=== PATIENT | male | born 1980 | race Caucasian/White ===

== ENCOUNTER 2016-06-10 03:15 | Observation (INO) | payer BC ==
[~2016-06-10] VITALS: Ht 182.9 cm; Wt 97.7 kg
[2016-06-10] VITALS (9 sets, daily range): BP systolic 112–138; BP diastolic 53–71; PULSE 54–87; TEMP 36.5–36.7; O2SAT 92–99; Ht 182.9 cm; Wt 97.7 kg
[2016-06-10] MEDS ORDERED: ONDANSETRON INJ 2 MG/ML 2 ML VIAL IV STA ×2 (03:27→04:41)
[2016-06-10] MEDS ORDERED: MoRPHine SULFATE 10 MG/ML CARP/VIAL IV STA (03:27)
[2016-06-10] MEDS ORDERED: SODIUM CHLORIDE 0.9% 1000ML 1,000 ML IV ONE ×2 (03:30→04:45)
[2016-06-10 03:47] LABS: BASO % 0.2 %; BASO ABS # 0.02 K/uL (0-0.2); COMPLETE YES; EOS % 2.7 %; HEMATOCRIT 42.8 % (42-52); IG% 0.3 %; LYMPH % 22.6 %; LYMPH ABS # 2.46 K/uL (1.2-3.4); MEAN CELL VOLUME 90.1 fL (80-100); MEAN CORPUSCULAR HEMOGLOBIN 31.6 pg (25-34); MEAN PLATELET VOLUME 9.4 fL (7.4-10.4); MONO % 7.4 %; NEUT % 66.8 %; PLATELET COUNT 146 K/uL (130-400); RED BLOOD COUNT 4.75 M/uL (4.7-6.1); WHITE BLOOD COUNT 10.87 K/uL (4.8-10.8)
[2016-06-10 04:08] LABS: BUN/CREATININE RATIO 21.6 (10-20); CALCIUM 8.7 mg/dl (8.5-10.1); CREATININE 0.94 mg/dl (0.60-1.40); POTASSIUM 3.3 mmol/L (3.5-5.1)
[2016-06-10 04:11] LABS: ALB/GLOB RATIO 1.3 (0.9-2)
[2016-06-10] MEDS ORDERED: GLUC10007 PO (04:35)
[2016-06-10] MEDS ORDERED: HYDROmorphone INJ 1 MG/ML SYR IV STA (04:41)
[2016-06-10] MEDS ORDERED: CEFOXITIN SOD 2 GM VIAL IV STA (04:57)
[2016-06-10 05:06] LABS: URINE APPEARANCE CLEAR (CLEAR); URINE BILIRUBIN NEG (NEG); URINE COLOR YELLOW; URINE NITRITE NEG (NEG); UROBILINOGEN NEG (NEG); ZZUR CULT IF INDIC CLEAN CATCH NO
[2016-06-10 05:08] LABS: MANUAL MICROSCOPIC REQUIRED? NO; REVIEW REQ? NO
--- NOTE | 2016-06-10 05:55 | EMERGENCY ROOM VISIT NOTE ---
History First contact with patient: 03:20 Chief Complaint: ABDOMINAL PAIN Stated Complaint: RT LOWER ABD PAIN Nursing Triage Summary: R lower quad abdominal pain started at 0100 after eating a dinner roll from [place] [employer]. +N. denies V/D. denies history of similar symptoms. hx kidney stones. History of Present Illness The patient is a 35 year old male who presents to the Emergency Room with complaints of right lower quadrant abdominal pain that began about 2 hours ago. The patient is nauseated but has not vomited. He does not have a history of abdominal surgery, but states that he has had kidney stones in the past. He last had something to eat at midnight, eating a dinner roll from [place] [employer]. The patient has not had fever or chills. No chest pain or shortness of breath. He does not have chronic medical disease and considers himself otherwise usually healthy. He rates his pain a constant 9/10 without radiation. No difficulty using the bathroom. Review of Systems More than 10 systems were reviewed and otherwise negative with the exception of history of present illness. Past Medical/Surgical History Surgical Problems: (1) S/P laparoscopic appendectomy No chronic medical disease Family History Cancer No pertinent family history Social History Smoking Status: Former Smoker Alcohol Use: none Marital Status: Housing Status: lives with family Current/Historical Medications Scheduled Glucosamine Sulfate (Glucosamine), 1,000 MG PO BID Scheduled PRN Oxycodone/Acetaminophen 5MG/325MG (Percocet 5MG/325MG), 1 TABLET PO Q4H PRN for Pain Allergies Coded Allergies: No Known Allergies (Verified , 06/10/16) Physical Exam Vital Signs Date Time Temp Pulse Resp B/P Pulse Ox O2 Delivery O2 Flow Rate FiO2 06/10/16 08:20 36.7 54 16 120/64 95 Room Air 06/10/16 08:11 64 16 118/65 96 06/10/16 07:27 56 18 126/64 97 Room Air 06/10/16 05:42 74 20 116/68 96 Room Air 06/10/16 04:32 76 20 127/76 97 Room Air 06/10/16 03:22 37.0 90 20 149/81 97 Room Air Physical Exam VITALS: Vitals are noted on the nurse's note and reviewed by myself. Vital signs stable. GENERAL: Well-developed, well-nourished, white male who appears in moderate to severe discomfort secondary to his stated complaint., Patient is cooperative with the examination. HEAD: Normocephalic atraumatic. HEART: Regular rate and rhythm without murmurs gallops or rubs. LUNGS: Clear to auscultation bilaterally without wheezes, rales or rhonchi. No retractions or accessory muscle use. ABDOMEN: Positive normal bowel sounds x 4. Soft with exquisite right lower quadrant tenderness on palpation. The patient does guard in this area. No CVA tenderness. MUSCULOSKELETAL: No muscle atrophy, erythema, or edema noted. Full range of motion without joint tenderness in all extremities. Medical Decision & Procedures ER Provider Diagnostic Interpretation: Preliminary Findings Only See Final Report For Complete Findings CT ABDOMEN & PELVIS: Appendix is dilated up to 1.2 cm and there are mild adjacent inflammatory changes. Findings are compatible with acute appendicitis in the appropriate clinical setting. 1 mm nonobstructing stone in left kidney. No hydronephrosis. Laboratory Results 06/10/16 03:35 Red Blood Count 4.75, Mean Corpuscular Volume 90.1, Mean Corpuscular Hemoglobin 31.6, Mean Corpuscular Hemoglobin Concent 35.0, Mean Platelet Volume 9.4, Neutrophils (%) (Auto) 66.8, Lymphocytes (%) (Auto) 22.6, Monocytes (%) (Auto) 7.4, Eosinophils (%) (Auto) 2.7, Basophils (%) (Auto) 0.2, Neutrophils # (Auto) 7.27, Lymphocytes # (Auto) 2.46, Monocytes # (Auto) 0.80, Eosinophils # (Auto) 0.29, Basophils # (Auto) 0.02 06/10/16 03:35 Test 06/10/16 03:35 06/10/16 04:30 White Blood Count 10.87 K/uL (4.8-10.8) Red Blood Count 4.75 M/uL (4.7-6.1) Hemoglobin 15.0 g/dL (14.0-18.0) Hematocrit 42.8 % (42-52) Mean Corpuscular Volume 90.1 fL (80-100) Mean Corpuscular Hemoglobin 31.6 pg (25-34) Mean Corpuscular Hemoglobin Concent 35.0 g/dl (32-36) Platelet Count 146 K/uL (130-400) Mean Platelet Volume 9.4 fL (7.4-10.4) Neutrophils (%) (Auto) 66.8 % Lymphocytes (%) (Auto) 22.6 % Monocytes (%) (Auto) 7.4 % Eosinophils (%) (Auto) 2.7 % Basophils (%) (Auto) 0.2 % Neutrophils # (Auto) 7.27 K/uL (1.4-6.5) Lymphocytes # (Auto) 2.46 K/uL (1.2-3.4) Monocytes # (Auto) 0.80 K/uL (0.11-0.59) Eosinophils # (Auto) 0.29 K/uL (0-0.5) Basophils # (Auto) 0.02 K/uL (0-0.2) RDW Standard Deviation 41.9 fL (36.4-46.3) RDW Coefficient of Variation 12.7 % (11.5-14.5) Immature Granulocyte % (Auto) 0.3 % Immature Granulocyte # (Auto) 0.03 K/uL (0.00-0.02) Anion Gap 9.0 mmol/L (3-11) Est Creatinine Clear Calc Drug Dose 130.3 ml/min Estimated GFR () 119.6 Estimated GFR (Non- 103.2 BUN/Creatinine Ratio 21.6 (10-20) Calcium Level 8.7 mg/dl (8.5-10.1) Total Bilirubin 0.5 mg/dl (0.2-1) Aspartate Amino Transf (AST/SGOT) 9 U/L (15-37) Alanine Aminotransferase (ALT/SGPT) 31 U/L (12-78) Alkaline Phosphatase 77 U/L (45-117) Total Protein 7.2 gm/dl (6.4-8.2) Albumin 4.0 gm/dl (3.4-5.0) Globulin 3.2 gm/dl (2.5-4.0) Albumin/Globulin Ratio 1.3 (0.9-2) Lipase 150 U/L (73-393) Urine Color YELLOW Urine Appearance CLEAR (CLEAR) Urine pH 5.0 (4.5-7.5) Urine Specific [place] 1.010 (1.000-1.030) Urine Protein NEG (NEG) Urine Glucose (UA) NEG (NEG) Urine Ketones NEG (NEG) Urine Occult Blood NEG (NEG) Urine Nitrite NEG (NEG) Urine Bilirubin NEG (NEG) Urine Urobilinogen NEG (NEG) Urine Leukocyte Esterase NEG (NEG) Medications Administered Medications (Trade) Dose Ordered Sig/Munira Route Start Time Stop Time Status Last Admin Dose Admin Sodium Chloride (Nss 1000ml) 1,000 ml @ 999 mls/hr Q1H1M ONCE IV 06/10/16 03:30 06/10/16 04:30 DC 06/10/16 03:33 999 MLS/HR Morphine Sulfate (MoRPHine SULFATE INJ) 8 mg NOW STAT IV 06/10/16 03:27 06/10/16 03:28 DC 06/10/16 03:33 8 MG Ondansetron HCl (Zofran Inj) 4 mg NOW STAT IV 06/10/16 03:27 06/10/16 03:28 DC 06/10/16 03:32 4 MG Hydromorphone HCl (Dilaudid Inj) 1 mg NOW STAT IV 06/10/16 04:41 06/10/16 04:42 DC 06/10/16 05:07 1 MG Ondansetron HCl 4 mg 4 mg NOW STAT IV 06/10/16 04:41 06/10/16 04:42 DC 06/10/16 05:06 4 MG Sodium Chloride (Nss 1000ml) 1,000 ml @ 999 mls/hr Q1H1M ONCE IV 06/10/16 04:45 06/10/16 05:45 DC 06/10/16 05:03 999 MLS/HR Cefoxitin Sodium (Mefoxin IV) 2,000 mg NOW STAT IV 06/10/16 04:57 06/10/16 04:58 DC 06/10/16 05:04 2,000 MG Fentanyl Citrate (Fentanyl Inj) 25 mcg Q5M PRN IV 06/10/16 09:00 06/10/16 14:00 DC 06/10/16 11:26 25 MCG Ondansetron HCl (Zofran Inj) 4 mg ONE PRN IV 06/10/16 09:00 06/10/16 11:10 DC 06/10/16 11:10 4 MG Bupivacaine HCl (Marcaine 0.5% MPF Inj) 14 ml ONE ONCE INJ 06/10/16 10:15 06/10/16 10:52 DC 06/10/16 10:15 14 ML Miscellaneous (Hep 5000 U/ Ancef 1 Gm In 1000 ml NS) 350 ml ONE ONCE IRRIG 06/10/16 10:18 06/10/16 10:57 DC 06/10/16 10:18 350 ML ED Course Physical exam and history were performed. Nursing notes and EMR were reviewed. Patient appears to have exquisite right lower quadrant tenderness on palpation. The patient is quite uncomfortable but cooperative. IV access was established and labs were obtained. The patient was hydrated with normal saline and provided IV morphine and Zofran for comfort. CT scan was performed. The patient's blood work is as above and was reviewed. He does not have significantly elevated white blood cell count, anemia, bandemia, or gross electrolyte imbalance. Lipase and transaminases are nondiagnostic. The patient CT scan is as above and is consistent with acute appendicitis. Clinically this does correlate with the patient's discomfort and physical exam findings. He continued to have pain despite the IV morphine, and I did change him to IV Dilaudid. The case was discussed with the on-call surgeon, Dr. Iyer, who agreed to evaluate the patient here in the emergency department. We did elect to provide the patient with 2 g IV Mefoxin. The patient had preoperative chest x-ray and EKG performed. The patient remained in stable condition in the emergency department until he was evaluated by Dr. Iyer. Please see Dr. Iyer's dictation for further patient course, plan, and disposition. The chart was completed utilizing [employer] Speech Voice Recognition Software. Grammatical errors, random word insertions, pronoun errors, and incomplete sentences are an occasional consequence of this system due to software limitations, ambient noise, and hardware issues. Any formal questions or concerns about the content, text, or information contained within the body of this dictation should be directly addressed to the provider for clarification. . Medical Decision Differential diagnosis: Etiologies such as appendicitis, diverticulitis, PUD, biliary pathology, UTI, pancreatitis, obstruction, mesenteric ischemia, aortic pathology, infections, inflammatory bowel disease, renal colic, as well as others were entertained. Impression Primary Impression: Acute appendicitis Departure Information Prescriptions Oxycodone/Acetaminophen 5MG/325MG (PERCOCET 5MG/325MG) Tab 1 TABLET PO Q4H Y for Pain, #30 TAB Prov: Josey Valencia ., JULIO 06/11/16 Referrals Augustin Peter III, M.D. (PCP) Patient Instructions [facility]
--- NOTE | 2016-06-10 07:24 | DIAGNOSTIC IMAGING REPORT ---
CHEST ONE VIEW PORTABLE CLINICAL HISTORY: Preop dyspnea COMPARISON STUDY: No previous studies for comparison. FINDINGS: Slight bronchovascular prominence. No focal infiltrate. Diaphragms are smooth. No evidence for cardiac enlargement. IMPRESSION: Slight bronchovascular prominence. Otherwise negative study. Electronically signed by: Wiley Tomlinson M.D. 06/10/2016 7:23 AM Dictated Date/Time: 06/10/2016 7:22 AM
--- NOTE | 2016-06-10 07:37 | DIAGNOSTIC IMAGING REPORT ---
ABDOMEN AND PELVIS CT WITHOUT CONTRAST CT DOSE: 594.59 mGy.cm HISTORY: Flank pain RLQ abd pain. Hx stones. Appx present. TECHNIQUE: Multiaxial CT images of the abdomen and pelvis were performed without contrast. COMPARISON STUDY: 09/06/2014 FINDINGS: Lung bases are clear. Liver spleen and pancreas are unremarkable. Kidneys negative for hydronephrosis. Bowel pattern is considered nonobstructive. The appendix is inferior to the cecum and has a maximum diameter of 1 cm. There is trace joint fluid. There is minimal surrounding periappendiceal infiltrative change. There is no evidence for abscess collection or obstruction. Bladder is midline. There is no free fluid within the pelvic cul-de-sac. IMPRESSION: 1. Acute appendicitis. 2. Mild periappendiceal inflammatory change. 3. No evidence for abscess collection or obstruction. Electronically signed by: Wiley Tomlinson M.D. 06/10/2016 7:36 AM Dictated Date/Time: 06/10/2016 7:31 AM
--- NOTE | 2016-06-10 07:55 | History and Physical ---
History & Physical Date & Time of Service: Jun 10, 2016 at 07:42 Chief Complaint: Rt Lower Abd Pain Primary Care Physician: Augustin Peter III, M.D. History of Present Illness Source: patient 35 y/o male developed pain in the RLQ at 0100 while he was at work. it was initially a dull ache but then became more sharp and much more severe. The pain is exacerbated by moving but does not radiate. He has nausea but has not vomited. he has not had any fever or chills. he denies a change in his bowel habits and has not had any diarrhea or constipation. He has not had any dysuria or hematuria. He has never symptoms like this before. Past Medical/Surgical History PMH: None PSH: Foot surgery Hand surgery f Family History Cancer Social History Smoking Status: Former Smoker Smokeless Tobacco Use: No Alcohol Use: socially Marital Status: Multi-Drug Resistant Organisms History of MDRO: No Allergies Coded Allergies: No Known Allergies (Verified , 06/10/16) Home Medications Scheduled Glucosamine Sulfate (Glucosamine), 1,000 MG PO BID Review of Systems Constitutional: No chills, No fever Respiratory: No cough, No sputum Cardiovascular: No chest pain, No edema Abdomen: + problem reported (as per HPI) Genitourinary - Male: + problem reported (as per HPI) Endocrine: No fatigue Hematologic / Lymphatic: No abnormal bleeding/bruising Integumentary: No rash Physical Exam Vital Signs Date Time Temp Pulse Resp B/P Pulse Ox O2 Delivery O2 Flow Rate FiO2 06/10/16 07:27 56 18 126/64 97 Room Air 06/10/16 05:42 74 20 116/68 96 Room Air 06/10/16 04:32 76 20 127/76 97 Room Air 06/10/16 03:22 37.0 90 20 149/81 97 Room Air General Appearance: WD/WN Head: normocephalic Neck: supple, no adenopathy Respiratory/Chest: chest non-tender, lungs clear Cardiovascular: regular rate, rhythm Abdomen/GI: normal bowel sounds, soft, + tenderness (RLQ to light palpation) Back: normal inspection, no CVA tenderness Extremities/Musculoskelatal: normal inspection Skin: normal color Diagnostics Laboratory Results Results Past 24 Hours Test 06/10/16 03:35 06/10/16 04:30 Range/Units White Blood Count 10.87 4.8-10.8 K/uL Red Blood Count 4.75 4.7-6.1 M/uL Hemoglobin 15.0 14.0-18.0 g/dL Hematocrit 42.8 42-52 % Mean Corpuscular Volume 90.1 80-100 fL Mean Corpuscular Hemoglobin 31.6 25-34 pg Mean Corpuscular Hemoglobin Concent 35.0 32-36 g/dl Platelet Count 146 130-400 K/uL Mean Platelet Volume 9.4 7.4-10.4 fL Neutrophils (%) (Auto) 66.8 % Lymphocytes (%) (Auto) 22.6 % Monocytes (%) (Auto) 7.4 % Eosinophils (%) (Auto) 2.7 % Basophils (%) (Auto) 0.2 % Neutrophils # (Auto) 7.27 1.4-6.5 K/uL Lymphocytes # (Auto) 2.46 1.2-3.4 K/uL Monocytes # (Auto) 0.80 0.11-0.59 K/uL Eosinophils # (Auto) 0.29 0-0.5 K/uL Basophils # (Auto) 0.02 0-0.2 K/uL RDW Standard Deviation 41.9 36.4-46.3 fL RDW Coefficient of Variation 12.7 11.5-14.5 % Immature Granulocyte % (Auto) 0.3 % Immature Granulocyte # (Auto) 0.03 0.00-0.02 K/uL Sodium Level 141 136-145 mmol/L Potassium Level 3.3 3.5-5.1 mmol/L Chloride Level 107 98-107 mmol/L Carbon Dioxide Level 25 21-32 mmol/L Anion Gap 9.0 3-11 mmol/L Blood Urea Nitrogen 20 7-18 mg/dl Creatinine 0.94 0.60-1.40 mg/dl Est Creatinine Clear Calc Drug Dose 130.3 ml/min Estimated GFR () 119.6 Estimated GFR (Non- 103.2 BUN/Creatinine Ratio 21.6 10-20 Random Glucose 86 70-99 mg/dl Calcium Level 8.7 8.5-10.1 mg/dl Total Bilirubin 0.5 0.2-1 mg/dl Aspartate Amino Transf (AST/SGOT) 9 15-37 U/L Alanine Aminotransferase (ALT/SGPT) 31 12-78 U/L Alkaline Phosphatase 77 45-117 U/L Total Protein 7.2 6.4-8.2 gm/dl Albumin 4.0 3.4-5.0 gm/dl Globulin 3.2 2.5-4.0 gm/dl Albumin/Globulin Ratio 1.3 0.9-2 Lipase 150 73-393 U/L Urine Color YELLOW Urine Appearance CLEAR CLEAR Urine pH 5.0 4.5-7.5 Urine Specific [place] 1.010 1.000-1.030 Urine Protein NEG NEG Urine Glucose (UA) NEG NEG Urine Ketones NEG NEG Urine Occult Blood NEG NEG Urine Nitrite NEG NEG Urine Bilirubin NEG NEG Urine Urobilinogen NEG NEG Urine Leukocyte Esterase NEG NEG Diagnostic Radiology ABDOMEN AND PELVIS CT WITHOUT CONTRAST CT DOSE: 594.59 mGy.cm HISTORY: Flank pain RLQ abd pain. Hx stones. Appx present. TECHNIQUE: Multiaxial CT images of the abdomen and pelvis were performed without contrast. COMPARISON STUDY: 09/06/2014 FINDINGS: Lung bases are clear. Liver spleen and pancreas are unremarkable. Kidneys negative for hydronephrosis. Bowel pattern is considered nonobstructive. The appendix is inferior to the cecum and has a maximum diameter of 1 cm. There is trace joint fluid. There is minimal surrounding periappendiceal infiltrative change. There is no evidence for abscess collection or obstruction. Bladder is midline. There is no free fluid within the pelvic cul-de-sac. IMPRESSION: 1. Acute appendicitis. 2. Mild periappendiceal inflammatory change. 3. No evidence for abscess collection or obstruction. Impression Assessment and Plan This patient's history, physical, labs and CT scan are all consistent with acute appendicitis. I recommended a laparoscopic appendectomy. I explained the possible need to convert to an open procedure. I explained the possible complications and answered his questions. He has signed a consent form.
[2016-06-10] MEDS ORDERED: PHENYLEPHRINE HCL INJ 10 MG/ML VIAL ONE (08:37)
[2016-06-10] MEDS ORDERED: GLYCOPYRROLATE INJ 0.2 MG/ML VIAL ONE (08:37)
[2016-06-10] MEDS ORDERED: ONDANSETRON INJ 2 MG/ML 2 ML VIAL ONE (08:37)
[2016-06-10] MEDS ORDERED: MIDAZOLAM HCL 1 MG/ML 2ML VIAL ONE (08:37)
[2016-06-10] MEDS ORDERED: ROCURONIUM BROMIDE 10 MG/ML 5 ML VIAL ONE (08:37)
[2016-06-10] MEDS ORDERED: PROPOFOL IV EMULSION 10 MG/ML 20 ML VIAL IV ONE ×2 (08:37→09:50)
[2016-06-10] MEDS ORDERED: FENTANYL CITRATE INJ 50 MCG/1 ML 2 ML VIAL ONE ×2 (08:37→10:04)
[2016-06-10] MEDS ORDERED: LIDOCAINE HCL 2% 2 ML VIAL (20MG/ML) ONE (08:37)
[2016-06-10] MEDS ORDERED: EpHEDrine SULFATE INJ 50 MG/ML AMP ONE (08:37)
[2016-06-10] MEDS ORDERED: NEOSTIGMINE METHYLSULFATE 5 MG/5 ML SYR ONE (08:37)
[2016-06-10] MEDS ORDERED: DEXAMETHASONE SOD INJ 4 MG/ML VIAL ONE ×2 (08:37→09:51)
[2016-06-10] MEDS ORDERED: SUCCINYLCHOLINE CHLORIDE 20 MG/ML 10 ML VIAL IV ONE (08:37)
[2016-06-10] MEDS ORDERED: ONDANSETRON INJ 2 MG/ML 2 ML VIAL IV PRN ×2 (09:00→10:45)
[2016-06-10] MEDS ORDERED: HYDROmorphone INJ 1 MG/ML SYR IV PRN (09:00)
[2016-06-10] MEDS ORDERED: EpHEDrine SULFATE INJ 50 MG/ML AMP IV PRN (09:00)
[2016-06-10] MEDS ORDERED: ATROPINE SULFATE 0.1 MG/ML 5ML SYR IV PRN (09:00)
[2016-06-10] MEDS ORDERED: BUPIVACAINE 0.5 % 5 MG/1 ML MPF 30ML VIAL ONE (09:03)
[2016-06-10] MEDS ORDERED: CEFAZOLIN SOD 1 GM VIAL ONE ×2 (09:03→09:51)
[2016-06-10] MEDS ORDERED: HEPARIN SOD (PORCINE) 1000 UNIT/ML 10 ML VIAL ONE (09:03)
[2016-06-10] MEDS ORDERED: BUPIVACAINE 0.5 % 5 MG/1 ML MPF 30ML VIAL INJ ONE (10:15)
[2016-06-10] MEDS ORDERED: NS IRRIG ONE (10:18)
[2016-06-10] MEDS ORDERED: [UNRECOGNIZED DRUG - OTHER] IRRIG ONE (10:18)
[2016-06-10] MEDS ORDERED: ANCEF IRRIG ONE (10:18)
--- NOTE | 2016-06-10 10:34 | [facility] Post Operative Brief Note ---
Immediate Operative Summary Operative Date Jun 10, 2016. Pre-Operative Diagnosis Acute Appendicitis Post-Operative Diagnosis Acute Appendicitis Procedure(s) Performed Laparoscopic Appendectomy Surgeon Dr. Iyer Director Clinical Pharmacology Surgeon(s) Azul Valencia PA-C Estimated Blood Loss 5 cc Findings See dictation Specimens A. Appendix Drains None Anesthesia General Complication(s) None Disposition Recovery Room / PACU
[2016-06-10] MEDS ORDERED: MoRPHine SULFATE 10 MG/ML CARP/VIAL IV PRN (10:45)
--- NOTE | 2016-06-10 10:48 | Discharge Instructions ---
Discharge Instructions Admission Reason for Admission: Rt Lower Abd Pain Discharge Discharge Diagnosis / Problem: Same Discharge Goals Goal(s): Decrease discomfort Activity Recommendations Activity Limitations: per Instructions/Follow-up section Lifting Limitations: no more than 10 pounds Shower/Bathe: tomorrow (Shower only) . Instructions / Follow-Up Instructions / Follow-Up Post-Surgical ~ Discharge Instructions Activity Recommendations: - lifting limitation: (10 pounds for 2 weeks), - exercise/sex/sports limit: (nonstrenuous for 2 weeks), - driving or machine use limit: (none for 1 week), - Shower/bathe limit: (may shower beginning tomorrow) Diet: - Resume previous diet SPECIAL CARE INSTRUCTIONS: - May shower in 24 hours. Let water run over area and pat dry. - Leave steri strips on for one week. - Call the surgeon's office with any questions or concerns - - (ex. temperature higher than 101 degrees F, excessive bleeding or pain). MEDICATIONS: - Resume previous medications unless instructed otherwise by your surgeon. - Ibuprofen 600 mg every 6 hours with food - Percocet 1 every 4 hours, as needed for pain FOLLOW UP VISIT: - If not already scheduled, please call the office to schedule a two week follow-up appointment. Office number Current Hospital Diet Patient's current hospital diet: Regular Diet Discharge Diet Recommended Diet: Regular Diet Procedures Procedures Performed: Laparoscopic Appendectomy Pending Studies Studies pending at discharge: no Medical Emergencies . Who to Call and When: Medical Emergencies: If at any time you feel your situation is an emergency, please call 911 immediately. . Non-Emergent Contact Non-Emergency issues call your: Primary Care Provider, Surgeon Call Non-Emergent contact if: your pain is worsening, wound has increased redness, wound has increased pain . "Provider Documentation" section prepared by Wiley Iyer. VTE Core Measure Inpt VTE Proph given/why not?: Treatment not indicated
[2016-06-10] MEDS ORDERED: IV FLUIDS COMPLETED PRN (11:15)
--- NOTE | 2016-06-10 11:18 | Anesthesiology Progress Note ---
Anesthesia Post Op Note Date & Time Jun 10, 2016 at 11:17 Vital Signs Pain Intensity: 0 Vital Signs Past 12 Hours Date Time Temp Pulse Resp B/P Pulse Ox O2 Delivery O2 Flow Rate FiO2 06/10/16 11:15 68 18 124/65 92 Room Air 06/10/16 11:05 60 18 124/74 97 Mask 10 06/10/16 10:55 77 18 130/71 97 Mask 10 06/10/16 10:45 36.2 85 18 128/85 96 Mask 10 06/10/16 08:20 36.7 54 16 120/64 95 Room Air 06/10/16 08:11 64 16 118/65 96 06/10/16 07:27 56 18 126/64 97 Room Air 06/10/16 05:42 74 20 116/68 96 Room Air 06/10/16 04:32 76 20 127/76 97 Room Air 06/10/16 03:22 37.0 90 20 149/81 97 Room Air Notes Mental Status: alert / awake / arousable, participated in evaluation Pt Amnestic to Procedure: Yes Nausea / Vomiting: adequately controlled Pain: adequately controlled Airway Patency, RR, SpO2: stable & adequate BP & HR: stable & adequate Hydration State: stable & adequate Anesthetic Complications: no major complications apparent
[2016-06-10] MEDS: FENTANYL CITRATE INJ 50 MCG/1 ML 2 ML VIAL IV PRN ×2 (11:21→11:26)
[2016-06-10] MEDS: D5W AND 1/2NSS + 20MEQ KCL 1,000 ML IV SCH ×2 (14:29→23:49)
[2016-06-10] MEDS: OXYCODONE/ACETAMINOPHEN 5-325 TAB PO PRN (14:33)
[2016-06-10] MEDS ORDERED: NURSING VERBAL MED ORDER ONE (17:45)
[2016-06-10] MEDS ORDERED: COUGH DROP (SUGAR FREE) LOZ 24 LOZ/1 BOX PO PRN (18:15)
--- NOTE | 2016-06-10 23:19 | OPERATIVE REPORT ---
DATE OF OPERATION: 06/10/2016 PREOPERATIVE DIAGNOSIS: Acute appendicitis. POSTOPERATIVE DIAGNOSIS: Same. PROCEDURE: Laparoscopic appendectomy. SURGEON: Dr. Iyer. BASKETBALL COMMENTATOR: Josey Valencia PA-C. FINDINGS: The appendix was firm and hyperemic. There was some peel on the distal half. The very base of the appendix for the proximal 1-2 cm was normal. The base of the appendix at the cecum as well as the cecum was normal. The visible bowel appeared normal. There was no evidence of abscess or perforation. TECHNIQUE: The patient was given a general anesthetic and the area was prepped and draped in usual sterile fashion. Transverse incision was made below the umbilicus, carried down through the subcutaneous tissue to the fascia which was grasped with 2 [place] clamps and incised between. The peritoneum was identified, incised, and the introducer was placed bluntly. The abdomen was then insufflated to a pressure of 15 mmHg with carbon dioxide. The lower midline introducer was placed under direct vision through a small skin incision. Traction was placed medially on the small bowel in the right lower quadrant. The patient was placed in Trendelenburg and airplane left position. That allowed me to visualize the appendix lying inferolateral to the cecum. The left lower quadrant introducer was placed under direct vision through a small skin incision. Traction was placed anteriorly on the appendix. There were some flimsy adhesions to the lateral abdominal wall that were taken down using blunt cautery dissection where appropriate. That allowed me to elevate the appendix away from the abdominal wall. I was then able to establish a plane between the appendix and the mesoappendix. The mesoappendix was divided using an Endo-PABLO stapler. There was some bleeding from the staple line that was controlled with a clip. There was no further bleeding. That allowed me to confirm that I was at the base of the appendix and identify its junction with the cecum. The appendix was then amputated using the Endo-PABLO stapler. The appendix was placed into an Endobag and brought out through the left lower quadrant introducer site. The introducer was replaced and the right lower quadrant was irrigated and the irrigation removed. The staple lines were inspected and there was no further bleeding. The right lower quadrant was again irrigated. Any irrigation that had entered the pelvis was removed and any irrigation that had entered the right upper quadrant was removed. The staple lines were again inspected and no bleeding was seen. The gas was allowed to escape and the introducers were removed. The fascia of the umbilical and left lower quadrant introducer sites was closed with interrupted 0 Vicryl and skin of all the incisions was closed with 4-0 Monocryl in either an interrupted or running subcuticular fashion. The skin was anesthetized with 0.5% Marcaine. The skin was cleansed, dried, benzoin placed. Steri-Strips applied. The estimated blood loss was 5 mL. Sponge, needle and instrument counts were correct prior to closure. The patient tolerated the surgical procedure without complication and was transferred to recovery. I attest to the content of the Intraoperative Record and any orders documented therein. Any exceptio ns are noted below.
[2016-06-11 03:56] VITALS: BP 113/59; PULSE 65; TEMP 36.5; O2SAT 96
[2016-06-11] MEDS: OXYCODONE/ACETAMINOPHEN 5-325 TAB PO PRN (05:17)
[2016-06-11 07:19] VITALS: BP 112/66; PULSE 58; TEMP 36.7; O2SAT 93
[2016-06-11] MEDS ORDERED: OXYC-57 PO (08:23)
--- NOTE | 2016-06-11 08:31 | Surgery Progress Note ---
Surgery Progress Note Date of Service Jun 11, 2016. Subjective Post OP Day: 1 (s/p laparoscopic appendectomy) + ambulating, + chest pain (Right upper abdominal /chest pain after walking and moving around, no substernal chest pain/pressure, no shortness of breath or difficulty breathing. No other aggrevating factors), + diet, + feeling well, + pain controlled, No SOB, No bowel movement, No nausea, No vomiting Objective Vital Signs: Date Time Temp Pulse Resp B/P Pulse Ox O2 Delivery O2 Flow Rate FiO2 06/11/16 07:19 36.7 58 16 112/66 93 Room Air 06/11/16 03:56 36.5 65 16 113/59 96 Room Air 06/10/16 23:53 Room Air 06/10/16 23:05 36.6 69 16 133/53 94 Nasal Cannula 3.0 06/10/16 19:20 36.7 87 18 138/71 92 Room Air 06/10/16 15:20 Room Air 06/10/16 15:15 36.5 84 18 112/68 93 Nasal Cannula 2.0 06/10/16 14:15 59 18 113/66 95 06/10/16 13:45 75 18 116/71 96 06/10/16 13:15 74 18 120/69 99 06/10/16 13:00 Nasal Cannula 2.0 06/10/16 13:00 Nasal Cannula 2.0 06/10/16 12:45 71 18 115/71 92 06/10/16 12:15 36.5 54 18 119/66 97 Nasal Cannula 2.0 06/10/16 11:55 50 18 120/66 94 Nasal Cannula 2 06/10/16 11:45 36.2 52 18 121/66 94 Nasal Cannula 2 06/10/16 11:35 36.2 54 18 122/67 94 Nasal Cannula 2 06/10/16 11:25 50 18 114/67 97 Nasal Cannula 2 06/10/16 11:15 68 18 124/65 92 Room Air 06/10/16 11:05 60 18 124/74 97 Mask 10 06/10/16 10:55 77 18 130/71 97 Mask 10 06/10/16 10:45 36.2 85 18 128/85 96 Mask 10 General Appearance: WD/WN, no apparent distress Head: normocephalic, atraumatic Neck: trachea midline Respiratory/Chest: chest non-tender, lungs clear, normal breath sounds, no respiratory distress, no accessory muscle use Cardiovascular: regular rate, rhythm, no murmur Abdomen: normal bowel sounds, non distended, soft, no organomegaly, no pulsatile mass, + tenderness (slight tenderness on palpation, expected post-op) Incision(s): clean, dry, intact, no erythema, no drainage Extremities: normal range of motion Assessment & Plan POD # 1 s/p Laparoscopic Appendectomy - vital signs stable - tolerating regular diet - pain controlled with po Percocet - urinating and ambulating without difficulty Plan: Discharge home this am Rx for Percocet prn pain Will write for restrictions for work and note to return to work Next Thursday Will follow-up with Dr. Iyer in Office in 2 weeks I have discussed this patient with Dr. Iyer who agrees with above findings and treatment plan.
[2016-06-11 09:14] VITALS: BP 112/66; PULSE 58; TEMP 36.7; O2SAT 93
--- NOTE | 2016-06-11 11:17 | Discharge Summary ---
Discharge Summary Dates Admission Date / Time: Jun 10, 2016 at 10:37 Discharge Date: Jun 11, 2016 Dispostion / Condition Discharge Disposition: Home Condition at Discharge: Good Principal Diagnosis (1) S/P laparoscopic appendectomy (2) Acute appendicitis Consultations / Procedures Consultations: NONE Procedures: Laparoscopic Appendectomy Pending Studies / Follow-Up NONE Medication Reconciliation New Medications: Oxycodone/Acetaminophen 5MG/325MG (Percocet 5MG/325MG) Tab 1 TABLET PO Q4H PRN for Pain, #30 TAB Continued Medications: Glucosamine Sulfate (Glucosamine) 1,000 Mg Tab 1000 MG PO BID, TAB Admission HPI Per the Admitting provider: 35 y/o male developed pain in the RLQ at 0100 while he was at work. it was initially a dull ache but then became more sharp and much more severe. The pain is exacerbated by moving but does not radiate. He has nausea but has not vomited. he has not had any fever or chills. he denies a change in his bowel habits and has not had any diarrhea or constipation. He has not had any dysuria or hematuria. He has never symptoms like this before. Admission Exam Per the Admitting provider: General Appearance: WD/WN Head: normocephalic Neck: supple, no adenopathy Respiratory/Chest: chest non-tender, lungs clear Cardiovascular: regular rate, rhythm Abdomen/GI: normal bowel sounds, soft, + tenderness (RLQ to light palpation) Back: normal inspection, no CVA tenderness Extremities/Musculoskelatal: normal inspection Skin: normal color Hospital Course (1) Acute appendicitis Patient was taken to operating room for laparoscopic appendectomy. Patient tolerated procedure well and was transferred to PACU in stable condition. He was then transferred to [facility] med/surg in stable condition. His diet was advanced to regular diet. IV fluids and IV pain medication were ordered. He was also given oral narcotic as needed for pain. He was eating regular diet evening of surgery without difficulty. POD # 1 he was feeling fine, some soreness at incision sites but pre-operative pain was resolved. He was urinating without difficulty and ambulating without assistance. Did have some RUQ abdominal/chest pain however mostly after up and walking and moving around. Once he ambulated hallway pain radiated to right shoulder and was improving. Vital signs were stable post-operatively until discharge. Overall, hospital course was uneventful. Total Time Total Time Spent (min): 30 Total Time Includes: examination of the patient, discharge planning, medication reconciliation Discharge Instructions As given to patient Copies To Primary Care Provider: Augustin Peter III, M.D..
== END 2016-06-11 09:45 | disposition home or self-care (01) ==
LOC: ENRESERVTM → ENRESERVDT → C.EDB 03:16 → C.MSN 10:37 → EDBEDREQ 11:41
PROVIDERS: ADMIT Surgery; ATTEND Surgery
DX: K35.80 Unspecified acute appendicitis (principal); Z87.891 Personal history of nicotine dependence